=== PATIENT | female | born 1960 | race Caucasian/White ===

== ENCOUNTER 2019-02-24 09:48 | Outpatient (RCR) | payer OTHER | END 2019-03-25 15:42 | disposition still patient (30) | LOC: WSOH 09:48 | DX: S82.001A Unspecified fracture of right patella, initial encounter for closed fracture (principal); S80.01XA Contusion of right knee, initial encounter; W17.2XXA Fall into hole, initial encounter; Y93.01 Activity, walking, marching and hiking; Y92.59 Other trade areas as the place of occurrence of the external cause; Y99.0 Civilian activity done for income or pay ==